=== PATIENT | female | born 1960 | race Caucasian/White ===

== ENCOUNTER 2020-12-12 16:02 | Outpatient (CLI) | payer OTHER ==
--- NOTE | 2020-12-12 16:36 | CT Report ---
PROCEDURE: Low Dose Lung Cancer Screen INDICATIONS: HX OF SMOKING TECHNIQUE: Noncontrast low-dose 5 mm thick sections acquired from the pulmonary apices to the posterior costophr enic angles. 7 mm thick coronal and sagittal MIP reformats were then acquired. For radiation dose r eduction, the following was used: automated exposure control, adjustment of mA and/or kV according t o patient size. COMPARISON: None. FINDINGS: Image quality: Excellent. Lungs and pleura: No evidence of pneumonia nor edema. Mild scarring within the right upper lobe ante romedially. Mediastinum: Heart size is normal. No pericardial effusion. No mediastinal adenopathy by size crit eria. Thoracic aorta and central pulmonary arteries are normal in size. Esophagus is normal in ana jodee. No hiatal hernia. Bones and chest wall: No suspicious bony lesions. No vertebral body compression fractures. No axil brenda or supraclavicular adenopathy by size criteria. The thyroid is normal in size. Abdomen: Visualized upper abdomen solid organs and bowel loops appear normal in the absence of contr ast. IMPRESSION: 1. No evidence of malignancy. Lung RADS 1. Repeat screening chest CT in one year is recommended. Reviewed by: Monik Hancock MD on 12/12/2020 4:35 PM PDT Approved by: Monik Hancock MD on 12/12/2020 4:35 PM PDT Station ID: [id number]
== END 2020-12-12 16:03 | disposition home or self-care (01) ==
LOC: DI 16:02
PROVIDERS: ATTEND Physician Assistant Medical
DX: Z12.2 Encounter for screening for malignant neoplasm of respiratory organs (principal); Z87.891 Personal history of nicotine dependence

== ENCOUNTER 2022-01-29 16:02 | Outpatient (CLI) | payer OTHER ==
--- NOTE | 2022-01-29 16:31 | CT Report ---
PROCEDURE: Low Dose Lung Cancer Screen INDICATIONS: FORMER SMOKER TECHNIQUE: Noncontrast low-dose images were acquired from the pulmonary apices to the posterior costophrenic ang les. Multiplanar MIP reformats were then acquired. For radiation dose reduction, the following was used: automated exposure control, adjustment of mA and/or kV according to patient size. COMPARISON: None. FINDINGS: Image quality: Excellent. Lungs and pleura: There is a 6 mm posterior right upper lobe pulmonary nodule (series 4/image 74). T here is a 6 mm pulmonary nodule within the superior segment of the right lower lobe (series 4/image 1 03). No other pulmonary nodules. No acute airspace opacities. No pleural effusion or pneumothorax. Mediastinum: Heart size is normal. No pericardial effusion. No mediastinal adenopathy by size crit eria. Thoracic aorta and central pulmonary arteries are normal in size. Esophagus is normal in ana jodee. No hiatal hernia. Bones and chest wall: No suspicious bony lesions. No vertebral body compression fractures. No axil brenda or supraclavicular adenopathy by size criteria. The thyroid is normal in size and there are no incidental findings. Abdomen: Visualized upper abdomen solid organs and bowel loops appear normal in the absence of contr ast. IMPRESSION: 1. 6 mm pulmonary nodules as above. Lung-RADS 3. Probably benign. Six-month follow-up recommended. Reviewed by: Radha Sanchez MD on 01/29/2022 4:29 PM PDT Approved by: Radha Sanchez MD on 01/29/2022 4:29 PM PDT Station ID: [id number]
== END 2022-01-29 16:03 | disposition home or self-care (01) ==
LOC: DI 16:02
PROVIDERS: ATTEND Physician Assistant
DX: Z12.2 Encounter for screening for malignant neoplasm of respiratory organs (principal); Z87.891 Personal history of nicotine dependence; R91.8 Other nonspecific abnormal finding of lung field

== ENCOUNTER 2022-07-01 06:18 | Day surgery (SDC) | payer OTHER ==
[2022-07-01] MEDS ORDERED: LACTATED RINGERS 1,000 ML IV ONE ×2 (06:43→08:19)
[2022-07-01] MEDS ORDERED: PROPOFOL 500 MG/50 ML 500 MG/50 ML VIAL ONE (06:58)
[2022-07-01] MEDS ORDERED: MIDAZOLAM 2 MG/2 ML VIAL ONE (07:01)
[2022-07-01] MEDS ORDERED: PROPOFOL 200 MG/20 ML VIAL IVP ONE (07:02)
--- NOTE | 2022-07-01 07:11 | ANESTHESIA ---
Pre-Anesthesia VS, & Labs - Diagnosis screening colonoscopy - Procedure colonoscopy Vital Signs: Temp Pulse Resp BP Pulse Ox O2 Flow Rate 36.6 C 112 H 18 182/102 H 95 07/01/22 06:34 07/01/22 06:34 07/01/22 06:34 07/01/22 06:34 07/01/22 06:34 Height: 5 ft 4 in Weight (kg): 95.8 kg Body Mass Index: 36.2 BMI Classification: Obese - NPO >8 hours - Is Patient ?: No - Lab Results Current Lab Results: Laboratory Tests 07/01/22 06:42: POC Whole Bld Glucose 241 H Home Medications and Allergies Home Medications: Ambulatory Orders Aspirin EC [Ecotrin] 81 mg PO DAILY 06/22/22 Metformin HCl 1,000 mg PO BID 06/22/22 Omeprazole Magnesium 20 mg PO DAILY 06/22/22 Semaglutide [Ozempic] 0.5 mg SQ OAW 06/22/22 Simvastatin [Zocor] 40 mg PO DAILY 06/22/22 Aspirin EC [Ecotrin] 81 mg PO DAILY 06/22/22 Metformin HCl 1,000 mg PO BID 06/22/22 Omeprazole Magnesium 20 mg PO DAILY 06/22/22 Semaglutide [Ozempic] 0.5 mg SQ OAW 06/22/22 Simvastatin [Zocor] 40 mg PO DAILY 06/22/22 Allergies/Adverse Reactions: Allergies Allergy/AdvReac Type Severity Reaction Status Date / Time No Known Drug Allergies Allergy Verified 06/22/22 13:39 Anes History & Medical History - Anesthetic History Anesthesia Complications: reports: No previous complications Family history of Anesthesia Complications: Denies Family history of Malignant Hyperthermia: Denies - Medical History Cardiovascular: reports: Hypertension, High cholesterol Pulmonary: reports: None Gastrointestinal: reports: GERD Urinary: reports: None Neuro: reports: None Musculoskeletal: reports: None Endocrine/Autoimmune: reports: Type 2 diabetes Blood Disorders: reports: None Skin: reports: None Smoking Status: Former smoker (quit > 12 years ago) Psychosocial: reports: No issues indicated History of Cancer?: No - Surgical History General: reports: Appendectomy Eyes Ears Nose Throat (EENT): reports: Tonsil/Adenoidectomy Gynecologic: reports: Tubal ligation Exam General: Alert, Oriented x3, Cooperative, No acute distress Dental: WNL Neck Mobility: Normal Mallampati classification: I Thyromental Distance: less than 4 cm Mental/Cognitive Status: Alert/Oriented X3, Normal for patient Cognitive Status: Within normal limits Plan Anesthesia Type: General, Total IV Consent for Procedure(s) Verified and Reviewed: Yes Code Status: Attempt Resuscitation ASA classification: 2-Mild systemic disease Is this case an emergency?: No
--- NOTE | 2022-07-01 07:18 | HISTORY & PHYSICAL EXAMINATION ---
Chief Complaint - Chief Complaint Chief Complaint: here for colon cancer screening History of Present Illness - History Obtained From Records Reviewed: yes History obtained from: pt Exam Limitations: none - History of Present Illness HPI Comment/Other: normal colonoscopy 2011. 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 HEENT: reports: Tonsil/Adenoidectomy Meds/Allgy - Home Medications Home Medications: Ambulatory Orders Medication Instructions Recorded Confirmed Aspirin EC [Ecotrin] 81 mg PO DAILY 06/22/22 07/01/22 Metformin HCl 1,000 mg PO BID 06/22/22 07/01/22 Omeprazole Magnesium 20 mg PO DAILY 06/22/22 07/01/22 Semaglutide [Ozempic] 0.5 mg SQ OAW 06/22/22 07/01/22 Simvastatin [Zocor] 40 mg PO DAILY 06/22/22 07/01/22 - Allergies Allergies/Adverse Reactions: Allergies Allergy/AdvReac Type Severity Reaction Status Date / Time No Known Drug Allergies Allergy Verified 06/22/22 13:39 Review of Systems - Other Findings Other Findings: 10 pt ros as above otherwise unremarkable Exam - Vital Signs Reviewed Vital Signs: Yes Vital Signs: Vital Signs x48h Temp Pulse Resp BP Pulse Ox 07/01/22 06:34 36.6 C 112 H 18 182/102 H 95 - Physical Exam General Appearance: positive: No acute distress, Alert Eyes Bilateral: positive: PERRL, EOMI ENT: positive: No signs of dehydration Neck: positive: No JVD, Trachea midline Respiratory: positive: Breath sounds nml Cardiovascular: positive: Regular rate & rhythm Abdomen: positive: Non-tender, No distention Neurologic/Psychiatric: positive: Oriented x3 Conclusion/Plan - Problem List (1) Colon cancer screening Conclusion/Plan: plan colonoscopy. parq held and consent obtained
[2022-07-01 08:47] VITALS: BP 127/78
--- NOTE | 2022-07-01 12:15 | ANESTHESIA POST OP EVALUATION ---
Anesthesia Post Eval - Post Anesthesia Eval Vitals: Last Vital Signs Temp 36.6 C 07/01/22 08:45 Pulse 79 07/01/22 08:45 Resp 16 07/01/22 08:45 BP 127/78 07/01/22 08:45 Pulse Ox 96 07/01/22 08:45 O2 Flow Rate CV Function Including HR & BP: Stable Pain Control: Satisfactory Nausea & Vomiting: Negative Mental Status: Baseline Respiratory Status: Airway Patent Hydration Status: Satisfactory
== END 2022-07-01 06:19 | disposition home or self-care (01) ==
LOC: SDS 06:18
PROVIDERS: ATTEND Surgery
PROC: 0DBP8ZX Excision of Rectum, Via Natural or Artificial Opening Endoscopic, Diagnostic (ICD-10-PCS; principal; 2022-07-01 07:30)
DX: Z12.11 Encounter for screening for malignant neoplasm of colon (principal); K62.1 Rectal polyp; E66.9 Obesity, unspecified; Z68.36 Body mass index [BMI] 36.0-36.9, adult; E11.9 Type 2 diabetes mellitus without complications; Z79.84 Long term (current) use of oral hypoglycemic drugs; K57.30 Diverticulosis of large intestine without perforation or abscess without bleeding
CPT/HCPCS: 45380; J7120

== ENCOUNTER 2022-08-07 07:39 | Outpatient (CLI) | payer OTHER ==
--- NOTE | 2022-08-07 12:49 | CT Report ---
PROCEDURE: Low Dose Lung Cancer Screen INDICATIONS: FORMER SMOKER TECHNIQUE: Noncontrast low-dose axial images were acquired from the pulmonary apices to the posterior costophren ic angles. Multiplanar MIP reformats were then reconstructed. For radiation dose reduction, the follo wing was used: automated exposure control, adjustment of mA and/or kV according to patient size. COMPARISON: 12/12/20, 01/29/2022 FINDINGS: Image quality: Excellent. Lungs and pleura: Pulmonary nodules are seen: Right upper lobe posteriorly, series 4 image 77, stable Superior segment right lower lobe, series 4 image 106, 5 mm, stable No new pulmonary nodules are seen. No focal infiltrates are seen. The central airways are patent. No pleural effusions or pneumothorax can be seen. Mediastinum: Heart size is normal. No pericardial effusion. No mediastinal adenopathy by size crit eria. Thoracic aorta and central pulmonary arteries are normal in size. Esophagus is normal in ana jodee. No hiatal hernia. Bones and chest wall: No suspicious bony lesions. No vertebral body compression fractures. Age-appr opriate degenerative changes are seen. No axillary or supraclavicular adenopathy by size criteria. The thyroid is normal in size and there are no incidental findings. Abdomen: A gallstone is seen, as on series 3 image 56. Visualized upper abdomen solid organs and bow el loops appear normal in the absence of contrast. IMPRESSION: Stable right-sided pulmonary nodules are seen. Additional findings: Gallstone Lung RADS category: 2. Recommend annual low-dose CT chest screening examinations, as long as the obed ent meets the published screening criteria. Reviewed by: Sergo Jimenez MD on 08/07/2022 11:47 AM [facility] Approved by: Sergo Jimenez MD on 08/07/2022 11:47 AM [facility] Station ID: [id number]
== END 2022-08-07 07:40 | disposition home or self-care (01) ==
LOC: DI 07:39
PROVIDERS: ATTEND Physician Assistant
DX: Z12.2 Encounter for screening for malignant neoplasm of respiratory organs (principal); R91.8 Other nonspecific abnormal finding of lung field; K80.20 Calculus of gallbladder without cholecystitis without obstruction; Z87.891 Personal history of nicotine dependence

== ENCOUNTER 2023-11-22 10:54 | Outpatient (CLI) | payer OTHER ==
--- NOTE | 2023-11-28 09:58 | Mammography Report ---
BILATERAL DIGITAL SCREENING MAMMOGRAM 3D/2D: 11/22/2023 CLINICAL: Routine screening. Comparison is made to exam dated: 01/21/2021 mammogram - [facility]. There are scattered areas of fibroglandular density in both breasts (category b / 25%-50% glandular t issue). No significant masses, calcifications, or other findings are seen in either breast. There has been no significant interval change. IMPRESSION: NEGATIVE There is no mammographic evidence of malignancy. A 1 year screening mammogram is recommended. Based on the Tyrer Cuzick model (a risk assessment model) the patient's lifetime risk is 6.0% and her 10 year risk is 2.7%. According to the ACR, ACS, and NCCN guidelines, an annual breast MRI exam dhiraj g with mammogram is recommended if the patient's lifetime risk is 20% or greater. This exam was interpreted at Station ID: [id number]. NOTE: For mammograms, a report in lay terms will be sent to the patient. Approximately 15% of breast malignancies will not be visualized mammographically. In the management of a palpable breast mass, a negative mammogram must not discourage biopsy of a clinically suspicious lesion. Electronically Signed By: Radha galindo/yazan:11/25/2023 16:41:54 letter sent: No_Letter ACR BI-RADS Category 1: Negative 3341F PARENCHYMAL PATTERN: (A) - The breast(s) demonstrate(s) scattered fibroglandular densities. BI-RADS CATEGORY: (1) - 1 RECOMMENDATION: (ANNUAL) - Recommend routine annual screening mammography. [id number] 1 year screening LATERALITY: (B)
== END 2023-11-22 10:55 | disposition home or self-care (01) ==
LOC: DI 10:54
PROVIDERS: ATTEND Physician Assistant
DX: Z12.31 Encounter for screening mammogram for malignant neoplasm of breast (principal); R92.323 Mammographic fibroglandular density, bilateral breasts

== ENCOUNTER 2023-11-22 10:55 | Outpatient (CLI) | payer OTHER ==
--- NOTE | 2023-11-22 12:49 | CT Report ---
PROCEDURE: Lung Cancer Screen INDICATIONS: FORMER SMOKER TECHNIQUE: A CT scan of the chest was performed. Intravenous contrast media was not administered. Images were re corded and evaluated at appropriate window settings. Reformats: axial MIP of the chest, coronal and s agittal. For radiation dose reduction, the following was used: automated exposure control, adjustment of mA and/or kV according to patient size. COMPARISON: 08/07/2022 FINDINGS: Image quality: Diagnostic Lungs and pleura:Scattered scarring and atelectasis, overall similar to prior. No airspace disease. N o pleural effusions. Numerous pulmonary nodules, particularly in the right, are stable. Mediastinum, heart, and esophagus: No hiatal hernia. There are coronary calcifications. Annular calci fications also seen. No pathologic lymph nodes by size criteria. Chest wall and thyroid: Unremarkable Upper abdomen: Cholecystectomy clips. No gross abnormality on these low-dose noncontrast images. Bones: No acute or suspicious osseous finding. IMPRESSION: Stable numerous pulmonary nodules, particularly on the right. No new or enlarging nodule/mass. Other findings as above. Lung RADS 2: Continue annual screening if eligible. Reviewed by: Frankie Lucas MD on 11/22/2023 12:48 PM PDT Approved by: Frankie Lucas MD on 11/22/2023 12:48 PM PDT Station ID: [id number]
== END 2023-11-22 10:56 | disposition home or self-care (01) ==
LOC: DI 10:55
PROVIDERS: ATTEND Physician Assistant
DX: Z12.2 Encounter for screening for malignant neoplasm of respiratory organs (principal); R91.8 Other nonspecific abnormal finding of lung field; Z87.891 Personal history of nicotine dependence